=== PATIENT | female | born 1930 | race African-American/Black ===

== ENCOUNTER 2016-09-22 22:12 | Emergency (ER) | payer MEDICARE ==
[~2016-09-22] VITALS: Ht 154.9 cm; Wt 69.0 kg
[2016-09-22 23:44] LABS: BASOPHILS % 0.7 % (0.0-2.0); EOSINOPHILS % 2.3 % (0.0-5.0); HEMATOCRIT. 30.5 % (36.0-48.0); HEMOGLOBIN. 9.9 g/dL (12.0-16.0); LYMPHOCYTES % 23.9 % (20.0-50.0); MEAN CORPUSCULAR HEMOGLOBIN 22.3 pg (28.0-32.0); MEAN CORPUSCULAR VOLUME 68.7 fL (81.0-99.0); MEAN PLATELET VOLUME 8.6 fl (7.4-10.4); MONOCYTES % 7.3 % (2.0-8.0); NEUTROPHILS % 65.8 % (40.0-76.0); PLATELET 139 x1000/uL (130-400); RED BLOOD CELL COUNT 4.44 mill/uL (4.2-5.4); RED CELL DISTRIBUTION WIDTH 23.3 % (11.6-14.6)
[2016-09-22 23:56] LABS: PROTHROMBIN TIME 10.7 sec
[2016-09-23 00:06] LABS: PLATELET ESTIMATE NORMAL
[2016-09-23 00:07] LABS: CARBON DIOXIDE 26 mEq/L (21-32); CHLORIDE 107 mEq/L (98-107); TROPONIN I < 0.02 ng/mL (0.00-0.04)
[2016-09-23 03:30] VITALS: BP 150/77
== END 2016-09-23 04:24 | disposition home or self-care (01) ==
LOC: ER 22:12 → EDBD 22:12 → ER 09-23 04:24
DX: R42 Dizziness and giddiness (principal); R26.81 Unsteadiness on feet; E11.9 Type 2 diabetes mellitus without complications; I11.0 Hypertensive heart disease with heart failure
CPT/HCPCS: 36415; 71010; 80053; 83880; 84484; 85025; 85610; 85730; 93970; 99285